=== PATIENT | female | born 1985 | race Native Hawaiian/Other Pacific Islander ===

== ENCOUNTER 2022-12-11 06:31 | Day surgery (SDC) | payer OTHER ==
[2022-12-08 13:20] LABS: BASOPHILS ABSOLUTE AUTO 0.02 K/mm3 (0.00-0.23); BASOPHILS PERCENT AUTO 0 % (0-2); EOSINOPHILS ABSOLUTE AUTO 0.06 K/mm3 (0.00-0.68); EOSINOPHILS PERCENT AUTO 1 % (0-6); Hematocrit 37.9 % (33.0-51.0); Hemoglobin 12.1 g/dL (11.5-16.0); IMMATURE GRAN ABSOLUTE AUTO 0.01 K/mm3 (0.00-0.10); IMMATURE GRAN PERCENT AUTO 0 % (0-1); LYMPHOCYTES ABSOLUTE AUTO 1.88 K/mm3 (0.84-5.20); LYMPHOCYTES PERCENT AUTO 29 % (21-46); MONOCYTES ABSOLUTE AUTO 0.39 K/mm3 (0.16-1.47); MONOCYTES PERCENT AUTO 6 % (4-13); Mean Corpuscular HGB 29.3 pg (26.0-34.0); Mean Corpuscular HGB Conc 31.9 g/dL (31.5-36.5); Mean Corpuscular Volume 92 fL (80-100); Mean Platelet Volume 10.4 fL (9.1-12.4); NEUTROPHILS ABSOLUTE AUTO 4.05 K/mm3 (1.96-9.15); NEUTROPHILS PERCENT AUTO 63 % (41-73); Platelet Count 368 K/mm3 (150-400); RDW Coefficient Variation 14.5 % (11.7-14.2); RDW Standard Deviation 48.5 fL (35.1-46.3); Red Blood Cell Count 4.13 M/mm3 (3.80-5.20); White Blood Cell Count 6.41 K/mm3 (4.00-11.30)
[~2022-12-11] VITALS: Ht 157.5 cm; Wt 115.7 kg
[2022-12-11] VITALS (15 sets, daily range): BP systolic 109–144; BP diastolic 60–86
[~2022-12-11 06:31] MED LIST: Armour Thyroid15 MG; LEVSOD100 PO; METF500 PO; PROG100 PO; PROGESTERONE CREAM; PROM25 PO; SERT25 PO
[2022-12-11] MEDS ORDERED: OMEP20ER PO (06:44)
--- NOTE | 2022-12-11 06:45 | NUR ---
Ambulatory in Day Surgery History, Chart, Medications and Allergies reviewed before start of procedure.Patient confirms NPO status and agrees with scheduled surgery. Lungs clear T/O to Auscultation. Patient reports completing Chlorhexadine shower X2 prior to admission to hospital.Surgical site prepped with 2% Chlorhexidine cloth wipe. Patient States Post-Procedure ride home has been arranged.
--- NOTE | 2022-12-11 14:12 | NUR ---
ARRIVAL FROM PACU PT ARRIVED TO UNIT FROM PACU, ABLE TO SLIDE SELF FROM GURNEY TO BED. LAP SITES X4 CDI WITH WOUND GLUE. NO SPOTTING ON MARK PAD. REMOVED LUI ON ARRIVAL, PT REPORTS IMMEDIATE RELIEF. PT AMBULATED TO BATHROOM AND ATTEMPTED TO VOID AFTER REMOVAL, SMALL AMOUNT LIGHT PINK OUTPUT. TOLERATING WATER AND JELLO. PLACED ON 2L NASAL CANULA, DESATS WHILE RESTING TO 88/89%, SATS 98% OR HIGHER ON 2L. RELL SOB. PAIN MINIMAL. CALL LIGHT IN REACH, SPOUSE AT BEDSIDE.
--- NOTE | 2022-12-11 18:22 | NUR ---
PT HAS BEEN UP AND AMBULATING IN THE HALLWAYS WITH SBA, SHE DENIES DIZZINESS OR LIGHTHEADEDNESS WITH AMBULATION. TOLERATING PO WELL. PAIN MANAGED PER EMAR, PT REPORTS IT IS STILL JUST ABOVE TOLERABLE. SHE IS TRYING TO PASS GAS. ATTEMPTING TO VOID. LAP SITES REMAIN CDI. NO DRAINAGE ON MARK PAD.
--- NOTE | 2022-12-11 18:23 | NUR ---
IGNITION RISK SCREEN FOR IGNITION RISK, NO SOURCES IDENTIFIED.
--- NOTE | 2022-12-12 00:29 | NUR ---
DISCHARGE PATIENT VSS, PAIN WELL MANAGED, WALKING HALLS, VOIDING AND TOLERATING PO INTAKE. DISCHARGE INSTRUCTIONS READ AND UNDERSTOOD. SPOUSE WITH PATIENT AND ABLE TO ASSIST AT HOME. BOT IVS REMOVED INTACT AND WITHOUT SWELLING, REDDNESS, OR PAIN. BELONGINGS IN PATIENT POSSESSION. LEFT @ 3020
== END 2022-12-12 00:59 | disposition home or self-care (01) ==
LOC: ORSCMMR 06:31 → ORD 08:00 → SURS 13:18 → ORSCMMR 12-12 00:59
PROVIDERS: Obstetrics & Gynecology
PROC: 0U5F4ZZ Destruction of Cul-de-sac, Percutaneous Endoscopic Approach (ICD-10-PCS; principal; 2022-12-11 08:00)
PROC: 0UT7FZZ Resection of Bilateral Fallopian Tubes, Via Natural or Artificial Opening With Percutaneous Endoscopic Assistance (ICD-10-PCS; principal; 2022-12-11 08:00)
PROC: 8E0W4CZ Robotic Assisted Procedure of Trunk Region, Percutaneous Endoscopic Approach (ICD-10-PCS; principal; 2022-12-11 08:00)
PROC: 0UT1FZZ Resection of Left Ovary, Via Natural or Artificial Opening With Percutaneous Endoscopic Assistance (ICD-10-PCS; principal; 2022-12-11 08:00)
PROC: 0UT9FZZ Resection of Uterus, Via Natural or Artificial Opening With Percutaneous Endoscopic Assistance (ICD-10-PCS; principal; 2022-12-11 08:00)
DX: N92.1 Excessive and frequent menstruation with irregular cycle (principal); D50.0 Iron deficiency anemia secondary to blood loss (chronic); N94.6 Dysmenorrhea, unspecified; D25.9 Leiomyoma of uterus, unspecified; N80.03 Adenomyosis of the uterus; N73.6 Female pelvic peritoneal adhesions (postinfective); R73.03 Prediabetes; E03.9 Hypothyroidism, unspecified; E66.01 Morbid (severe) obesity due to excess calories; Z68.42 Body mass index [BMI] 45.0-49.9, adult; Z79.84 Long term (current) use of oral hypoglycemic drugs; Z79.899 Other long term (current) drug therapy
CPT/HCPCS: 58571; 58662; S2900; 36415; 84702; 85025; 86850; 86900; 86901; 88305; 88307; A9270; J0690; J1100; J1170; J1885; J2250; J2405; J2704; J3010; J7120